=== PATIENT | female | born 1990 ===

== ENCOUNTER 2021-03-29 11:34 | Emergency (ER) | payer OTHER ==
[~2021-03-29] VITALS: Ht 175.3 cm; Wt 68.2 kg
[2021-03-29 11:48] VITALS: BP 110/65; TEMP 97.9
[2021-03-29 12:03] LABS: COLLECTION METHOD CLEAN CATCH
[2021-03-29 12:16] LABS: MUCOUS Present /lpf; PH 6 (5-8); URINE APPEARANCE Hazy; URINE BACTERIA None Seen /hpf; URINE BILIRUBIN Negative (NEGATIVE); URINE BLOOD 1+ (NEGATIVE); URINE COLOR Yellow; URINE GLUCOSE Negative (NEGATIVE); URINE KETONE Negative (NEGATIVE); URINE LEUKOCYTE ESTERASE Negative (NEGATIVE); URINE NITRATE Negative (NEGATIVE); URINE PROTEIN(semi-quant) Negative (NEGATIVE); URINE RBC 0-2 /hpf; URINE UROBILINOGEN Negative (NEGATIVE)
[2021-03-29 13:41] VITALS: PULSE 79
== END 2021-03-29 13:41 | disposition home or self-care (01) ==
LOC: COL.ER 11:34
PROVIDERS: Nurse Practitioner
DX: R31.9 Hematuria, unspecified (principal); Z32.02 Encounter for pregnancy test, result negative

== ENCOUNTER 2022-03-11 20:56 | Emergency (ER) | payer OTHER ==
[~2022-03-11] VITALS: Ht 175.3 cm; Wt 66.8 kg
[2022-03-11 21:05] VITALS: TEMP 99.7
[2022-03-11] MEDS ORDERED: VITAMIN D31000 I1 PO (21:09)
[2022-03-11] MEDS ORDERED: SALINE 45 ML45 ML NS (21:09)
[2022-03-11 21:47] LABS: STREP SCREEN NEGATIVE
[2022-03-11] MEDS ORDERED: PAXLOVID CO-PA1 EACH PO (22:05)
[2022-03-11 22:15] VITALS: BP 120/67; PULSE 100
== END 2022-03-11 22:15 | disposition home or self-care (01) ==
LOC: COL.ER 20:56
PROVIDERS: Family Medicine
DX: U07.1 COVID-19 (principal); R00.0 Tachycardia, unspecified; Z28.310 Unvaccinated for COVID-19

== ENCOUNTER 2024-01-01 16:19 | Outpatient (CLI) | payer OTHER ==
[~2024-01-01] VITALS: Ht 175.3 cm; Wt 76.4 kg
[~2024-01-01 16:19] MED LIST: METROGEL-VAGINA0.75% VG; PAXLOVID CO-PA1 EACH PO; SALINE 45 ML45 ML NS; VITAMIN D31000 I1 PO
[2024-01-01] MEDS ORDERED: LR 1,000 ML IV PRN (16:30)
--- NOTE | 2024-01-01 17:20 | NUR ---
DISCUSSED DC INSTRUCTIONS WITH PT. PT AGREES,
[2024-01-01 17:25] VITALS: BP 119/58; PULSE 75; TEMP 98
== END 2024-01-01 17:20 | disposition home or self-care (01) ==
LOC: LDRO 16:19
DX: O26.893 Other specified pregnancy related conditions, third trimester (principal); R10.30 Lower abdominal pain, unspecified; Z3A.36 36 weeks gestation of pregnancy